=== PATIENT | female | born 1960 | race African-American/Black ===

== ENCOUNTER 2018-06-25 18:20 | Emergency (ER) | payer OTHER ==
[2018-06-25] MEDS ORDERED: Amoxicillin/Potassium Clav 875 MG TAB ONE (19:35)
== END 2018-06-25 19:57 | disposition home or self-care (01) ==
LOC: NAV ERS 18:20
DX: J02.9 Acute pharyngitis, unspecified (principal); I10 Essential (primary) hypertension; Z79.82 Long term (current) use of aspirin; Z79.899 Other long term (current) drug therapy
CPT/HCPCS: 87081; 87430; 99283